=== PATIENT | male | born 1970 | race Caucasian/White ===

== ENCOUNTER 2021-09-13 14:37 | Outpatient (CLI) | payer BC, SELFPAY ==
[2021-09-13 21:40] LABS: Cholesterol* 264 mg/dL (90-199); Triglycerides* 103 mg/dL (40-149)
[2021-09-13 21:41] LABS: HDL Cholesterol* 81 mg/dL (>=40); LDL Cholesterol Calculated 162 mg/dL (<100)
== END 2021-09-13 14:38 | disposition home or self-care (01) ==
LOC: LKVREF 14:37
PROVIDERS: PCP Physician Assistant Medical; Visit Provider Physician Assistant Medical
DX: E78.5 Hyperlipidemia, unspecified (principal)
CPT/HCPCS: 80061

== ENCOUNTER 2025-01-16 08:10 | Outpatient (CLI) | payer BC, SELFPAY | END 2025-01-16 08:11 | disposition home or self-care (01) | PROVIDERS: PCP Physician Assistant Medical; Visit Provider Physician Assistant Medical | DX: Z00.00 Encounter for general adult medical examination without abnormal findings (principal) | CPT/HCPCS: 80053; 80061; G0103 ==